=== PATIENT | female | born 1995 | race Caucasian/White ===

== ENCOUNTER 2017-04-27 19:06 | Observation (INO) ==
[2017-04-27 19:51] LABS: Bilirubin,Urine Negative (Negative); Blood,Urine Moderate (Negative); Clarity,Urine Cloudy (Clear); Color,Urine Yellow (Yellow); Glucose,Urine (UA) Normal (Normal); Ketones,Urine Negative (Negative); Leukocyte Esterase,Urine Large (Negative); Nitrite,Urine Negative (Negative); Protein,Urine 30 mg/dL (Neg-Trace); Specific Gravity,Urine < 1.005 (1.010-1.025); Urobilinogen,Urine Normal (Normal)
[2017-04-27 19:54] LABS: Bacteria,Urine Moderate per hpf (None-Few); Hyaline Casts,Urine None Seen per lpf (None-Few); Squamous Epithelial Cell,Urine Moderate per lpf (None-Few); WBC,Urine TNTC per hpf (0-3)
[2017-04-27 20:05] LABS: Amphetamine Screen,Urine Negative ng/mL (Cutoff=1000); Barbiturate Screen,Urine Negative ng/mL (Cutoff=200); Benzodiazepines Screen,Urine Negative ng/mL (Cutoff=200); Cannabinoid Screen,Urine Positive ng/mL (Cutoff = 50); Cocaine Screen,Urine Negative ng/mL (Cutoff= 300); Opiate Screen,Urine Negative ng/mL (Cutoff=300); Phencyclidine Screen,Urine Negative ng/mL (Cutoff=25)
--- NOTE | 2017-04-27 21:22 | OB/GYN Progress Note ---
Date of Encounter: 04/27/17 Time of Encounter: 21:16 - Assessment and Plan (1) Marijuana abuse Current Visit: Yes Status: Acute UDS positive. Pt admits to occasional use for nausea. Pt counseled on risks of use to fetus and states that she will not use for the remainder of her . (2) 31 weeks gestation of Current Visit: Yes Status: Acute (3) Pyelonephritis affecting in third trimester Current Visit: Yes Status: Acute Pt presents with right lower quadrant abd pain radiating to back, mild cva tenderness. UA positive for blood and leukocyte esterase, and TNTC WBCs, suspect early pyelonephritis. Pt afebrile and is not ill in appearance sent for culture. UDS positive for marijuana. VSS, abdomen soft, non-tender. NST reassuring. Will discharge with prescription for keflex 1000mg BIDx7 days. Pt states understanding of concerning signs and symptoms to watch for and return if needed. Pt states understanding and will be discharged in stable condition. Subjective - Subjective Principal diagnosis: abdominal pain Interval history: 21 y/o F at 31 1/7 weeks gestation who presents to L&D with RLQ abdominal pain that radiates to the back. She states that it began at 1000 and is constant. She notes normal movement. She has had some dysuria. Denies fevers, chills, hematuria, vaginal bleeding or fluid discharge, cp, sob, n/v. Antepartum ROS: movement normal, other (abdominal pain), no loss of fluid , no vaginal bleeding, no contractions Objective - Vital Signs Vital Signs: Intake and Output 04/27/17 04/27/17 04/27/17 07:59 15:59 23:59 Other: Weight 91.9 kg Patient Weight 04/27/17 23:59 Weight 91.9 kg - Exam FHR: auscultation normal, category 1 Auscultation: bilateral: normal Abdomen: Present: normal appearance, soft, gravid. Absent: tenderness (mild right CVA tenderness, no suprapubic tenderness) Cervical dilation: closed - Labs Labs: Abnormal lab results Urine Clarity Cloudy (Clear) A 04/27/17 19:40 Ur Specific [place] < 1.005 (1.010-1.025) L 04/27/17 19:40 Urine Protein 30 mg/dL (Neg-Trace) H 04/27/17 19:40 Urine Blood Moderate (Negative) H 04/27/17 19:40 Ur Leukocyte Esterase Large (Negative) H 04/27/17 19:40 Urine Microscopic RBC 5-15 per hpf (0-3) H 04/27/17 19:40 Urine Microscopic WBC TNTC per hpf (0-3) H 04/27/17 19:40 Ur Squamous Epith Cells Moderate per lpf (None-Few) H 04/27/17 19:40 Urine Bacteria Moderate per hpf (None-Few) H 04/27/17 19:40 Ur Culture Indicated? YES (NO) A 04/27/17 19:40 U Marijuana (THC) Screen Positive ng/mL (Cutoff = 50) H 04/27/17 19:40 - Allied health notes Allied health notes reviewed: nursing
== END 2017-04-27 21:42 | disposition home or self-care (01) ==
LOC: 1NENULAB
PROVIDERS: ADMIT Obstetrics & Gynecology; ATTEND Obstetrics & Gynecology

== ENCOUNTER 2017-06-26 05:55 | Inpatient (IN) ==
[2017-06-26] MEDS ORDERED: Naloxone 0.4 MG/ML INJ IVP PRN ×2 (06:01→17:15)
[2017-06-26] MEDS ORDERED: Metoclopramide 10 MG/2 ML VIAL IVP PRN ×2 (06:01→17:15)
[2017-06-26] MEDS ORDERED: Ondansetron 4 MG/2 ML VIAL IVP PRN ×2 (06:01→17:15)
[2017-06-26] MEDS ORDERED: miSOPROStol 25 MCG TABLET PO PRN (06:01)
[2017-06-26] MEDS ORDERED: *HR* Nalbuphine 10 MG/ML AMPUL IVP PRN (06:01)
[2017-06-26] MEDS ORDERED: Famotidine 20 MG/2 ML VIAL IVP PRN (06:01)
[2017-06-26] MEDS ORDERED: Ringers Solution, Lactated 1,000 ML IVC SCH ×2 (06:15→17:15)
[2017-06-26 07:01] LABS: Basophils % 0.3 %; Eosinophils # 0.1 K/mcL (0.0-0.6); Eosinophils % 0.6 %; Hematocrit 29.6 % (35.3-44.9); Hemoglobin 8.8 g/dL (11.5-15.4); Immature Granulocytes % 1.8 % (0-4); Lymphocytes # 2.5 K/mcL (0.6-4.6); Lymphocytes % 21.4 %; Mean Corpuscular HGB Conc 29.7 g/dL (31.6-35.5); Mean Corpuscular Hemoglobin 21.7 pg (28.0-33.3); Mean Corpuscular Volume 73.1 fL (83.0-100.0); Mean Platelet Volume 10.2 fL (9.4-12.4); Monocytes # 0.7 K/mcL (0.0-1.3); Monocytes % 5.6 %; Neutrophils # 8.3 K/mcL (1.6-8.9); Nucleated Red Blood Cells 0.2 /100 WBC (0); Platelet Count 203 K/mcL (140-400); Red Blood Count 4.05 M/mcL (3.82-4.97); Red Cell Distribution Width 17.8 % (11.5-14.5); Segmented Neutrophils % 70.3 %
--- NOTE | 2017-06-26 07:53 | OB/GYN History & Physical ---
Date of Encounter: 06/26/17 Time of Encounter: 07:50 Assessment and Plan (1) and not yet delivered in third trimester Current visit: Yes Status: Acute (2) 39 weeks gestation of Current visit: Yes Status: Acute (3) Large for gestational age fetus affecting mother, antepartum, third trimester, single gestation Current visit: Yes Status: Acute (4) Encounter for elective induction of labor Current visit: Yes Status: Acute Patient will be induced with a Estevse catheter and Cytotec plan is to anticipate vaginal delivery History of Present Illness HPI: Ms. Phillips is a 21 year old female 2 para 1 at 39-2/7 weeks by last menstrual period equal to an 8-5/7 week ultrasound who presented for induction of labor secondary to term . Patient had an ultrasound 2 weeks ago baby measured 3844 g which is greater than the 96th percentile with an PARAMJIT of 2170 this. She does have a history of delivering an 8 lbs. 9 oz. baby before. Did inform her once we were into the 39 week range we would go ahead and try to get her delivered to keep this baby from getting any bigger. Patient denies any contractions good movement no vaginal bleeding or discharge. Patient is O+, rubella positive, Varicella positive, and GBS negative. Patient's hemoglobin on admission was 8.8 today. She has been on iron twice a day. Past Med Surg Social Fam HX - Past Medical History Source: patient, old records reviewed Medical history: no medical history Psychiatric history: depression - Past Surgical History Surgical History: no surgical history - Social History Smoking Status: Never smoker Smokeless Tobacco Status: No Alcohol use: none Drug use: none Occupational status: employed Current living situation: Home - Independent Activity Level: Independent ambulation Recent Out of Country Travel Within the Last 8 Weeks: No Exposure or Possible Exposure to Illness During Travel: No - Family History Maternal Grandmother Living Status: Cause of : cancer Obstetrical History - Pregnancies : 2 Para: 1 Term: 1 Livin Medications and Allergies Vit/Iron Fumarate/FA [ Tablet] 1 each PO DAILY 04/27/17 [ History] Ferrous Sulfate 1 tab PO BID 06/26/17 [History] 3 Allergy/AdvReac Type Severity Reaction Status Date / Time No Known Allergies Allergy Verified 06/26/17 06:17 Review of System OB All systems PM: reviewed and no additional remarkable complaints except as stated Exam - Constitutional Constitutional: well developed, well nourished, no acute distress - HEENT HEENT: EOMI, PERRL - Neck Neck exam: full ROM - Lungs Respiratory exam: CTAB - Cardiovascular Cardiovascular exam: RRR - Abdomen Abdomen: Present: bowel sounds normal, gravid - Extremities Extremities exam: full ROM - Cervix Dilation: 1 Effacement: 80 Station: -3 (Esteves catheter inserted with 30 mL balloon inflated. 50 g Cytotec given by mouth) Results Result Diagrams: 06/26/17 06:38 Abnormal lab results WBC 11.8 K/mcL (4.3-11.1) H 06/26/17 06:38 Hgb 8.8 g/dL (11.5-15.4) L 06/26/17 06:38 Hct 29.6 % (35.3-44.9) L 06/26/17 06:38 MCV 73.1 fL (83.0-100.0) L 06/26/17 06:38 MCH 21.7 pg (28.0-33.3) L 06/26/17 06:38 MCHC 29.7 g/dL (31.6-35.5) L 06/26/17 06:38 RDW 17.8 % (11.5-14.5) H 06/26/17 06:38 Nucleated RBCs/100 WBC 0.2 /100 WBC (0) H 06/26/17 06:38 All other labs normal. - VTE Reasons for not Prescribing Prophylaxis: Treatment not Indicated - Low risk for VTE
[2017-06-26 08:43] LABS: Amphetamine Screen,Urine Negative ng/mL (Cutoff=1000); Barbiturate Screen,Urine Negative ng/mL (Cutoff=200); Benzodiazepines Screen,Urine Negative ng/mL (Cutoff=200); Cannabinoid Screen,Urine Negative ng/mL (Cutoff = 50); Cocaine Screen,Urine Negative ng/mL (Cutoff= 300); Opiate Screen,Urine Negative ng/mL (Cutoff=300); Phencyclidine Screen,Urine Negative ng/mL (Cutoff=25)
--- NOTE | 2017-06-26 10:59 | Anesthesia Evaluation PreOp ---
Date of Encounter: 06/26/17 Time of Encounter: 10:48 - Past History Planned Operation: labor epidural Cardiac History: Denies any Significant Hx Pulmonary History: Denies Any Significant HX RETREAD MOLD OPERATOR History: Denies Any Significant HX Other Medical History: Denies Any Significant HX Anesthesia History: No Prior Anesthetic Complications, Past Anesthesia (ear tubes as child, no problems with GA. No FHAP. Previous epidural, states had difficulty placing, but was effective.) : Yes Alcohol Use: none Drug use: none Medications and Allergies Vit/Iron Fumarate/FA [ Tablet] 1 each PO DAILY 04/27/17 [ History] Ferrous Sulfate 1 tab PO BID 06/26/17 [History] 3 Allergy/AdvReac Type Severity Reaction Status Date / Time No Known Allergies Allergy Verified 06/26/17 06:17 - Meds/Allergy Pre-op Review Medications Reviewed: Yes Allergies Reviewed: Yes Beta Blockers on Current Med List: No Anesthesia Results - Labs 06/26/17 06:38 Anesthesia Exam VSS and FHTs stable. Height: 5'7" Weight: 97kg NPO (# of Hours): 5 Pain Scale: 6 Pain Scale Used: Numeric (1 - 10) - HEENT Pupil (Motor): Pupils equal, EOMI Mallampati: II Teeth: Normal Oral Opening: Greater than 3 - RETREAD MOLD OPERATOR LOC: Oriented RETREAD MOLD OPERATOR Motor: Normal RUE, Normal LUE, Normal RLE, Normal LLE, Normal Face RETREAD MOLD OPERATOR Sensory: Normal: RUE, LUE, RLE, LLE, Face - Cardiac Rhythm: Regular - Pulmonary Breath Sounds: bilateral Clear Respiratory Effort: Symmetrical Anesthesia Assess/Plan ASA Score: 2 Modified Jose Rafael Scale for Level of Consciousness: Cooperative, oriented, and tranquil Anesthetic Plan: Regional
[2017-06-26] MEDS ORDERED: *HR* FentaNYL (PF) 100 MCG/2 ML VIAL EP ONE (11:00)
[2017-06-26] MEDS ORDERED: Bupivacaine-MPF 0.25% 10 ML VIAL EP ONE (11:00)
[2017-06-26] MEDS ORDERED: Epidural Premix (fent/bupiv) 110 ML EP SCH (11:00)
[2017-06-26] MEDS ORDERED: Epidural Premix (fent/bupiv) 110 ML EP ONE (11:42)
[2017-06-26] MEDS ORDERED: Morphine Sulfate/PF 5mg/10mL Vial ONE (14:11)
[2017-06-26] MEDS ORDERED: *HR* Oxytocin 10 UNIT/ML VIAL IM ONE ×2 (14:15→14:38)
[2017-06-26] MEDS ORDERED: *HR* Succinylcholine 200 MG/10 ML VIAL IVP ONE (14:15)
[2017-06-26] MEDS ORDERED: Ondansetron 4 MG/2 ML VIAL ONE (14:15)
[2017-06-26] MEDS ORDERED: *HR* Propofol 200 MG/20 ML VIAL IVP ONE (14:15)
[2017-06-26] MEDS ORDERED: Dexamethasone 4 MG/ML VIAL ONE (14:15)
[2017-06-26] MEDS ORDERED: *HR* Rocuronium Bromide 50 MG/5 ML VIAL ONE (14:19)
[2017-06-26] MEDS ORDERED: Ondansetron 4 MG/2 ML VIAL IVP ONE (14:34)
[2017-06-26] MEDS ORDERED: Acetaminophen IV 1,000 MG/100 ML INFUS..BTL IVPB ONE (14:34)
[2017-06-26] MEDS ORDERED: *HR* Promethazine 25 MG/ML VIAL IVP PRN (14:34)
[2017-06-26] MEDS ORDERED: MORPHINE SUL Oral CONC 10 MG/0.5 ML ORAL.SYG SL PRN (14:34)
[2017-06-26] MEDS ORDERED: *HR* HYDROmorphone (PF) 1 MG/ML SYRINGE IVP PRN (14:34)
[2017-06-26] MEDS ORDERED: Ringers Solution, Lactated 2,000 ML ONE (14:38)
--- NOTE | 2017-06-26 15:03 | OB/GYN Procedure Note ---
Section - Date of procedure: 06/26/17 Preop diagnosis: other ( at 39-2/7 weeks, cord prolapse) Post-op diagnosis: same (Same) Procedure: primary low transverse (emergent) Surgeon: Dawit Menchaca Blood Loss: 1,000 Was there an medical assistant cardiology present: Yes Sports Media: Rand Urbina ([email or web address]) Anesthesiologist: Blair Contreras Machine Ceramic Coater: Naa Yung Anesthesia Type: General section complications: none Disposition: L&D Recovery Room Specimens: Cord gasses - (s) Infant A Infant Delivery Date: 06/26/17 Delivery Time: 14:09 Presentation: vertex Position: CATRACHITO Route of delivery: other ( section) Gender: Male Viability: Viable Pounds: 9 Ounces: 0 Gram Weight: 4.08 kg at 1 minute: 8 at 5 minutes: 9 Shoulder Dystocia: not encountered Specimens collected: cord blood, venous cord gases, arterial cord gases Placenta: complete extraction Cord: 3 umbilical vessels - Narrative Narrative: Patient is a 21-year-old 2 para 1 at 39-2/7 weeks who had presented for induction of labor secondary to and large for gestational age infant. Patient did get a Esteves catheter which fell out approximately 2 hours after placement patient was given Cytotec patient was having contractions every 2 minutes and was 6 cm we went ahead and artificially ruptured her and we encountered large amounts of fluid. It was at this point it was noted that we could palpate a cord along side the baby's head. I attempted to reduce the cord for the cannot get it past the head and heart tones started to drop. Because return to drop and I could not reduce the cord an emergency was called for cord prolapse. Procedure: Patient was taken the operating room where she was placed in the dorsal supine position prepped with Betadine then draped was applied. Timeout was then obtained and general anesthesia was administered. Once the patient was asleep cancel incision was made with a scalpel carried down through the underlying tissue to the fascia was identified. The fascia was in midline rectus muscles were then identified in the midline also probable peritoneum was grasped with a hemostat tented up and entered sharply this is extended laterally blade was inserted the lower uterine segment was incised with a scalpel and then extended laterally with digital manipulation. The infant's head was then delivered and was noted baby had a nuchal cord 1 loose and reduced the infant was fully delivered cry the cord was clamped and cut and was handed off to the waiting pediatric team. Cord blood and cord gases were obtained percent was then delivered spontaneously 3 vessel cord. Uterus was then exteriorized cleaned of all clots and debris and then the lower uterine segment was closed using a 0 Vicryl in a running locking stitch by a 2 layer closure. Good hemostasis was noted the uterus was then returned to the abdomen and gutters were cleaned of all clots and debris then copiously irrigated. The fascia was then closed using a #1 stratafix a running stitch and the skin was closed using 4-0 Vicryl in a subcuticular manner. All needles laps and sponge counts were correct 3 patient did receive preoperative antibiotics she will be continued on Ancef 2 g every 8 hours for 24 hours Zithromax 500 mg IV piggyback 1 and Flagyl 500 mg every 8 hours 24 hours a TANIA dressing was applied and patient was taken to the recovery room in stable condition
--- NOTE | 2017-06-26 15:20 | Anesthesia Procedures ---
Date of Encounter: 06/26/17 Time of Encounter: 10:48 Procedures: Anesthesia - Epidural/Spinal Patient ID/Chart reviewed: Yes Patient examined: Yes OB Eval: Gestational age: 39 OB Eval: : 2 OB Eval: Hx Para: 1 OB Eval: Dilated at (cm): 4 OB Eval: Contractions: Non-stressed pattern Consent Obtained: Yes Supplemental Oxygen: None/Room Air Site Prep: Aseptic Technique, Sterile prep and drape, Povidone-Iodine 1% Patient position: upright Local Anesthetic: Lidocaine 1% Amount of Local Anesthetic used: 3 Touhy Needle Gauge: 18 Touhy Needle Depth (cm): 5 Catheter Depth at Skin (cm): 15 Test Dose (1.5% Lido + Epi): Volume given (mls): 3 Test Dose Result: Negative Loading Dose: 0.25% Marcaine (mls): 8 Loading Dose: Fentanyl (mcg): 100 Loading Dose Administered: Thru Catheter Infusion Med: 0.125% Bupivacaine w/ 2 mcg/ml Fentanyl Infusion Rate (mls/hr): [address]: Tegaderm, Tape Interspace Used: L3-L4 Loss of Resistance (MARA): Yes Blood: No CSF: No Paresthesia: No Vitals + FHT's: 3 Vital Signs Time 1143 1155 1200 1205 1210 BP 121/80 122/68 114/68 115/71 111/69 Pulse 112 98 96 92 94 FHTs 130 130 130 130 130
--- NOTE | 2017-06-26 16:01 | Anesthesia Evaluation Post Op ---
Date of Encounter: 06/26/17 Time of Encounter: 15:45 - Vital Signs Vital Signs: VSS. - Lungs Lungs: Clear Ascult./Percussion - Airway Airway: Non-obstructed - Cardiovascular Regular Rate - Mental Status Mental Status: Alert & Oriented, Answers Appropriately - Pain Pain Scale: 5 (down from 7) Pain Scale used: Numeric (1 - 10) - Nausea Vomiting Nausea Vomiting: Not Present - Hydration Hydration: NPO, Esteves catheter - Discharge PostOp Status: Transfer Patient to floor
[2017-06-26] MEDS ORDERED: Oxytocin 20 units/ LR 1000 mL 20 UNIT/1,000 ML BAG IVC ONE (16:26)
[2017-06-26] MEDS ORDERED: Sennosides 8.6 MG TABLET PO PRN (17:15)
[2017-06-26] MEDS ORDERED: Oxytocin 20 units/ LR 1000 mL 20 UNIT/1,000 ML BAG IVC SCH (17:15)
[2017-06-26] MEDS ORDERED: Simethicone 80 MG TAB.CHEW PO PRN (17:15)
[2017-06-26] MEDS ORDERED: CeFAZolin Syringe 2,000MG/20 ML SYR IVPB SCH (17:15)
[2017-06-26] MEDS ORDERED: *HR* OxyCODONE/APAP 10/325 TABLET PO PRN (17:15)
[2017-06-26] MEDS: CeFAZolin Pre 2,000 MG/100 ML 2,000 MG/100 ML BAG IVPB SCH (18:22)
[2017-06-26] MEDS: Azithromycin 500 MG in D5% in Water 250 ML IVPB SCH (19:02)
[2017-06-26] MEDS: MetroNIDAZOLE 500 MG/100 ML 500 MG/100 ML BAG IVPB SCH (20:25)
[2017-06-26] MEDS ORDERED: NON-FORMULARY MEDICATION 1 EACH EACH (Ferrous Sulfate 1 TAB) PO SCH (21:00)
[2017-06-27] MEDS: CeFAZolin Pre 2,000 MG/100 ML 2,000 MG/100 ML BAG IVPB SCH ×2 (00:10→08:02)
[2017-06-27] MEDS: Ibuprofen 600 MG TABLET PO PRN ×3 (00:21→20:15)
[2017-06-27] MEDS: MetroNIDAZOLE 500 MG/100 ML 500 MG/100 ML BAG IVPB SCH ×3 (00:59→16:53)
[2017-06-27] MEDS: *HR* OxyCODONE/APAP 5/325 TABLET PO PRN ×4 (03:59→21:13)
[2017-06-27 04:58] LABS: Basophils % 0.1 %; Eosinophils % 0.1 %; Hematocrit 21.2 % (35.3-44.9); Immature Granulocytes % 0.9 % (0-4); Lymphocytes # 2.7 K/mcL (0.6-4.6); Lymphocytes % 17.9 %; Mean Corpuscular HGB Conc 29.2 g/dL (31.6-35.5); Mean Corpuscular Hemoglobin 21.6 pg (28.0-33.3); Mean Corpuscular Volume 73.9 fL (83.0-100.0); Mean Platelet Volume 10.8 fL (9.4-12.4); Monocytes # 0.8 K/mcL (0.0-1.3); Monocytes % 5.7 %; Neutrophils # 11.2 K/mcL (1.6-8.9); Platelet Count 180 K/mcL (140-400); Red Blood Count 2.87 M/mcL (3.82-4.97); Red Cell Distribution Width 17.9 % (11.5-14.5); Segmented Neutrophils % 75.3 %
[2017-06-27 04:59] LABS: Hemoglobin 6.2 g/dL (11.5-15.4)
[2017-06-27] MEDS: Prenatal Vit/FA 1 EACH TABLET PO SCH (08:01)
--- NOTE | 2017-06-27 08:21 | OB/GYN Progress Note ---
Date of Encounter: 06/27/17 Time of Encounter: 08:19 - Assessment and Plan (1) Status post primary low transverse section Current Visit: Yes Status: Acute continue routine postop/ care (2) Anemia Current Visit: Yes Status: Acute Will transfuse 2 units PRBCs today and continue ferrous sulfate BID. Qualifiers: Anemia type: unspecified type Qualified Code(s): D64.9 - Anemia, unspecified Subjective - Subjective Principal diagnosis: Postop/ day 1 primary c/s Interval history: Patient is postop day 1 Primary c/s for cord prolapse. Patient is doing well. Lochia is light. Patient reports pain is well controlled. Patient reports: appetite normal, pain well controlled : doing well, bottle feeding Objective - Vital Signs Latest vital signs: Vital Signs Temp Pulse Resp BP Pulse Ox 06/27/17 07:48 98.5 F 86 16 111/71 100 06/27/17 04:00 98.0 F 76 16 112/72 98 06/27/17 00:25 98.2 F 74 16 119/80 97 06/26/17 20:15 97.8 F 85 14 122/76 98 06/26/17 19:15 97.9 F 80 14 120/75 98 06/26/17 18:15 97.6 F 66 16 119/81 98 06/26/17 17:45 98.9 F 65 16 118/78 06/26/17 17:15 98.2 F 83 16 117/81 97 Intake and Output 06/26/17 06/27/17 06/27/17 23:59 07:59 15:59 Intake Total 200 / 200 1040 / 1040 Output Total 300 / 300 1050 / 1050 Balance -100 / -100 -10 / -10 Intake: IV Fluids 200 / 200 200 / 200 Ancef Premix 2,000 MG/100 ML 2, 100 / 100 100 / 100 000 mg In 100 ml @ 200 mls/hr IVPB Q8HR RADHA Rx#:[id number] Flagyl Premix 500 MG/100 ML 500 100 / 100 100 / 100 mg In 100 ml @ 100 mls/hr IVPB Q8HR RADHA Rx#:[id number] Oral 840 / 840 Output: Urine 700 / 700 Catheter 300 / 300 350 / 350 Other: Meal Gold fish crackers , Jello Percent of Meal Consumed 100% Weight 93.259 kg Patient Weight 06/27/17 23:59 Weight 93.259 kg - Exam Lungs: bilateral: normal Chest: Normal S1, Normal S2 Extremities: Present: normal Abdomen: Present: normal appearance, soft Incision: Present: normal, dressed (Samuel dressing. @ spots drainging on lower dressing that have been marked. ) Uterus: Present: normal, firm - Labs Labs: Laboratory Results - last 24 hr 06/26/17 06/26/17 06/27/17 06:38 08:05 04:08 WBC 14.8 H RBC 2.87 L Hgb 6.2 L D Hct 21.2 L MCV 73.9 L MCH 21.6 L MCHC 29.2 L RDW 17.9 H Plt Count 180 MPV 10.8 Immature Gran % 0.9 Seg Neutrophils % 75.3 Lymphocytes % 17.9 Monocytes % 5.7 Eosinophils % 0.1 Basophils % 0.1 Neutrophils # 11.2 H Lymphocytes # 2.7 Monocytes # 0.8 Eosinophils # 0.0 Basophils # 0.0 Urine Opiates Screen Negative Ur Barbiturates Screen Negative Ur Phencyclidine Scrn Negative Ur Amphetamines Screen Negative U Benzodiazepines Scrn Negative Urine Cocaine Screen Negative U Marijuana (THC) Screen Negative Blood Type O POSITIVE
[2017-06-27] MEDS ORDERED: NON-FORMULARY MEDICATION 1 EACH EACH (Prenatal Vit/Iron Fumarate/Fa [Prenatal Tablet] 1 EA PO SCH (09:00)
[2017-06-27] MEDS ORDERED: 0.9 % Sodium Chloride 1,000 ML ONE (09:36)
[2017-06-27] MEDS: Azithromycin 500 MG in D5% in Water 250 ML IVPB SCH (18:48)
[2017-06-28] MEDS: *HR* OxyCODONE/APAP 5/325 TABLET PO PRN (02:47)
[2017-06-28 04:35] LABS: Basophils % 0.2 %; Eosinophils # 0.1 K/mcL (0.0-0.6); Eosinophils % 0.8 %; Hematocrit 24.1 % (35.3-44.9); Hemoglobin 7.7 g/dL (11.5-15.4); Immature Granulocytes % 2.2 % (0-4); Lymphocytes % 23.6 %; Mean Corpuscular Hemoglobin 24.8 pg (28.0-33.3); Mean Corpuscular Volume 77.5 fL (83.0-100.0); Mean Platelet Volume 10.2 fL (9.4-12.4); Monocytes # 0.7 K/mcL (0.0-1.3); Monocytes % 5.1 %; Neutrophils # 8.8 K/mcL (1.6-8.9); Nucleated Red Blood Cells 0.4 /100 WBC (0); Platelet Count 171 K/mcL (140-400); Red Blood Count 3.11 M/mcL (3.82-4.97); Red Cell Distribution Width 19.2 % (11.5-14.5); Segmented Neutrophils % 68.1 %
[2017-06-28 07:53] VITALS: BP 108/74
--- NOTE | 2017-06-28 08:39 | Discharge Summary ---
Date of Encounter: 06/28/17 Time of Encounter: 08:36 - Discharge Diagnosis (1) Status post primary low transverse section Priority: Primary Status: Acute Comments: Pt meeting milestones. Tolerating regular diet without nausea. She is not yet passing flatus. Precautions given. (2) Anemia due to acute blood loss Priority: Secondary Status: Acute Comments: Pt denies s/sx anemia. She is s/p 2 units PRBC's with rise in hgb 6.2 to 7.7. Discharge home on iron. - Discharge Medications Prescriptions: OxyCODONE/APAP 5/325 [Percocet 5/325 MG] 1 each PO Q4HR PRN 5 Days #30 tablet PRN Reason: Moderate pain 4-6 Ibuprofen [Motrin] 600 mg PO Q6HR PRN #60 tablet PRN Reason: Cramping Docusate [Colace] 100 mg PO BID #60 capsule Ferrous Sulfate 325 mg PO DAILY #30 tablet Home Medications: Azithromycin [Zithromax Tri-Manuel] 500 mg PO DAILY #5 tablet 06/28/17 [Rx] Docusate [Colace] 100 mg PO BID #60 capsule 06/28/17 [Rx] Ferrous Sulfate 325 mg PO DAILY #30 tablet 06/28/17 [Rx] Ibuprofen [Motrin] 600 mg PO Q6HR PRN #60 tablet 06/28/17 [Rx] OxyCODONE/APAP 5/325 [Percocet 5/325 MG] 1 each PO Q4HR PRN 5 Days #30 tablet [Rx] Vit/FA 1 each PO DAILY tablet 06/28/17 [Rx] Simethicone [Gas-X] 80 mg PO TID PRN tab.chew 06/28/17 [Rx] Allergies/Adverse Reactions: 3 Allergy/AdvReac Type Severity Reaction Status Date / Time No Known Allergies Allergy Verified 06/26/17 06:17 Data Procedures and tests throughout hospitalization: Laboratory Tests 06/26/17 06/26/17 06/26/17 06:38 06:38 08:05 WBC 11.8 H RBC 4.05 Hgb 8.8 L Hct 29.6 L MCV 73.1 L MCH 21.7 L MCHC 29.7 L RDW 17.8 H Plt Count 203 MPV 10.2 Immature Gran % 1.8 Seg Neutrophils % 70.3 Lymphocytes % 21.4 Monocytes % 5.6 Eosinophils % 0.6 Basophils % 0.3 Neutrophils # 8.3 Lymphocytes # 2.5 Monocytes # 0.7 Eosinophils # 0.1 Basophils # 0.0 Nucleated RBCs/100 WBC 0.2 H Urine Opiates Screen Negative Ur Barbiturates Screen Negative Ur Phencyclidine Scrn Negative Ur Amphetamines Screen Negative U Benzodiazepines Scrn Negative Urine Cocaine Screen Negative U Marijuana (THC) Screen Negative Blood Type O POSITIVE Antibody Screen NEGATIVE Crossmatch See Detail 06/27/17 06/28/17 04:08 03:59 WBC 14.8 H 12.8 H RBC 2.87 L 3.11 L Hgb 6.2 L D 7.7 L D Hct 21.2 L 24.1 L MCV 73.9 L 77.5 L MCH 21.6 L 24.8 L MCHC 29.2 L 32.0 RDW 17.9 H 19.2 H Plt Count 180 171 MPV 10.8 10.2 Immature Gran % 0.9 2.2 Seg Neutrophils % 75.3 68.1 Lymphocytes % 17.9 23.6 Monocytes % 5.7 5.1 Eosinophils % 0.1 0.8 Basophils % 0.1 0.2 Neutrophils # 11.2 H 8.8 Lymphocytes # 2.7 3.0 Monocytes # 0.8 0.7 Eosinophils # 0.0 0.1 Basophils # 0.0 0.0 Nucleated RBCs/100 WBC 0.4 H Urine Opiates Screen Ur Barbiturates Screen Ur Phencyclidine Scrn Ur Amphetamines Screen U Benzodiazepines Scrn Urine Cocaine Screen U Marijuana (THC) Screen Blood Type Antibody Screen Crossmatch Labs on day of discharge: Labs from last 24 hours 06/28/17 06/26/17 03:59 06:38 WBC 12.8 H RBC 3.11 L Hgb 7.7 L D Hct 24.1 L MCV 77.5 L MCH 24.8 L MCHC 32.0 RDW 19.2 H Plt Count 171 MPV 10.2 Immature Gran % 2.2 Seg Neutrophils % 68.1 Lymphocytes % 23.6 Monocytes % 5.1 Eosinophils % 0.8 Basophils % 0.2 Neutrophils # 8.8 Lymphocytes # 3.0 Monocytes # 0.7 Eosinophils # 0.1 Basophils # 0.0 Nucleated RBCs/100 WBC 0.4 H Blood Type O POSITIVE Antibody Screen NEGATIVE Crossmatch See Detail - Impressions ITS Impressions KUB X-Ray 06/26/17 14:14 IMPRESSION: No acute abdominal finding. No obvious radiopaque foreign body. D/ / 06/26/2017 14:56:19 Oanh Putnam MD / bcarter Interpreting Provider: Oanh Putnam MD Date of admission: 06/26/17 05:55 Primary care physician: Ashleigh Mon CNP Discharging clinician: Jaquelin Dejesus Anticipated date of discharge: 06/28/17 - Patient Status Disposition: Home, Self-Care Condition: Good Functional capacity at discharge: independent ambulation Overall status at discharge: patient is progressing back to baseline - Discharge Instructions Instructions: Section (DC) Follow Up With: Dawit Araiza DO [Partnered Physician] - 07/11/17 4:15 pm Ashleigh Mon CNP [Primary Care Provider] - - Diet and Activity Activity: increase activity as tolerated Diet: regular diet Hospital Course Reason for admission: induction of labor Delivery: section (for cord prolapse) Episiotomy: none Laceration: 4th degree Other procedures: none complications: transfusion Discharge diagnosis: IUP at term delivered baby: male Hospital course: - Date of procedure: 06/26/17 Preop diagnosis: other ( at 39-2/7 weeks, cord prolapse) Post-op diagnosis: same (Same) Procedure: primary low transverse (emergent) Surgeon: Dawit Araiza Quantitated Blood Loss: 1,000 Was there an higher level teaching assistant present: Yes Clinical Education Coordinator: Rand Urbina ([email or web address]) Anesthesiologist: Blair Contreras Ticker Wirer: Naa Yung Anesthesia Type: General section complications: none Disposition: L&D Recovery Room Specimens: Cord gasses - Infant (s) A Delivery Date: 06/26/17 Infant Delivery Time: 14:09 Presentation: vertex Position: CATRACHITO Route of delivery: other ( section) Gender: Male Viability: Viable Pounds: 9 Ounces: 0 Gram Weight: 4.08 kg at 1 minute: 8 at 5 minutes: 9 Shoulder Dystocia: not encountered Specimens collected: cord blood, venous cord gases, arterial cord gases Placenta: complete extraction Cord: 3 umbilical vessels Time Attestation: Total time spent providing and/or coordinating discharge services: Time Spent: Less than 30 minutes - VTE Reasons for not Prescribing Prophylaxis: Treatment not Indicated - Low risk for VTE Documentation of Mechanical Device: Intermittent pneumatic compression device Exam - Constitutional Vitals: Temp Pulse Resp BP Pulse Ox 98.8 F 88 16 108/74 99 06/28/17 07:52 06/28/17 07:52 06/28/17 07:52 06/28/17 07:52 06/28/17 07:52 General appearance IM: A&O X 3, pleasant, no acute distress - Respiratory Respiratory exam: Present: CTAB - Cardiovascular Cardiovascular exam IM: Present: RRR, +S1, +S2 - GI/Abdominal GI/Abdominal exam IM: normal bowel sounds, soft, no peritoneal signs Incision: dressed (dressing with small amount old drainage, otherwise intact) - Uterine Tone: Firm Uterus Position: 1 Finger Below Umbilicus - Extremities Exam Extremities exam IM: Present: pedal edema (1+ bilaterally, no erythema or warmth ) - Neurological Exam Neurological exam: normal gait, oriented X3 - Psychiatric Additional comments: reports good mood
[2017-06-28] MEDS: Prenatal Vit/FA 1 EACH TABLET PO SCH (10:57)
== END 2017-06-28 11:40 | disposition home or self-care (01) | DRG 540 ==
LOC: 1NENULAB 05:55 → 1NENUOBS 16:04
PROVIDERS: ADMIT Obstetrics & Gynecology; ATTEND Obstetrics & Gynecology

== ENCOUNTER 2020-05-11 02:33 | Inpatient (IN) ==
[2020-05-11 02:24] LABS: Basophils % 0.3 %; Eosinophils % 0.3 %; Hematocrit 38.5 % (35.3-44.9); Immature Granulocytes % 1.4 % (0-4); Lymphocytes # 2.7 K/mcL (0.6-4.6); Lymphocytes % 18.1 %; Mean Corpuscular HGB Conc 28.6 g/dL (31.6-35.5); Mean Corpuscular Hemoglobin 24.1 pg (28.0-33.3); Mean Corpuscular Volume 84.2 fL (83.0-100.0); Mean Platelet Volume 10.2 fL (9.4-12.4); Monocytes # 0.6 K/mcL (0.0-1.3); Monocytes % 4.2 %; Neutrophils # 11.1 K/mcL (1.6-8.9); Platelet Count 330 K/mcL (140-400); Red Blood Count 4.57 M/mcL (3.82-4.97); Segmented Neutrophils % 75.7 %; White Blood Count 14.7 K/mcL (4.3-11.1)
[~2020-05-11 02:33] MED LIST: *HR* Nalbuphine 10 MG/ML AMPUL IV PRN; *HR* Nalbuphine 10 MG/ML AMPUL ONE; Famotidine 20 MG/2 ML VIAL IVP PRN; Lidocaine 1% 20 ML MDV INFILT PRN; Metoclopramide 10 MG/2 ML VIAL IVP PRN; Naloxone 0.4 MG/ML INJ IVP PRN; Ringers Solution, Lactated 1,000 ML IVC SCH
[2020-05-11 02:47] LABS: Anisocytosis 2+ (Not Present); Hypochromasia Present (Not Present); Platelet Estimate Normal (Normal); Poikilocytosis 1+ (Not Present); Polychromasia 1+ (Not Present)
[2020-05-11] MEDS ORDERED: Oxytocin 20 units/ LR 1000 mL 20 UNIT/1,000 ML BAG IVC ONE (04:23)
[2020-05-11] MEDS ORDERED: Acetaminophen 325 MG TABLET PO PRN (05:00)
[2020-05-11] MEDS ORDERED: Measles/Mumps/Rubella Vacc 0.5 ML VIAL SQ PRN (05:00)
[2020-05-11] MEDS ORDERED: Rho Immune Globulin 1,500 UNIT SYRINGE IM PRN (05:00)
[2020-05-11] MEDS ORDERED: Oxytocin 20 units/ LR 1000 mL 20 UNIT/1,000 ML BAG IVC SCH (05:00)
[2020-05-11] MEDS: Prenatal Vit/FA 1 EACH TABLET PO SCH (09:26)
[2020-05-11] MEDS: Ibuprofen 600 MG TABLET PO PRN ×2 (14:23→23:17)
[2020-05-11] MEDS ORDERED: Benzocaine/Menthol 56 GM AEROSOL SPRAY TP ONE (23:18)
[2020-05-12 04:43] LABS: Eosinophils % 1.6 %
[2020-05-12 04:45] LABS: Basophils % 0.3 %; Eosinophils # 0.2 K/mcL (0.0-0.6); Hemoglobin 8.6 g/dL (11.5-15.4); Immature Granulocytes % 1.8 % (0-4); Lymphocytes % 30.4 %; Mean Corpuscular HGB Conc 28.7 g/dL (31.6-35.5); Mean Corpuscular Hemoglobin 24.4 pg (28.0-33.3); Mean Corpuscular Volume 85.2 fL (83.0-100.0); Monocytes # 0.6 K/mcL (0.0-1.3); Monocytes % 4.6 %; Platelet Count 257 K/mcL (140-400); Red Blood Count 3.52 M/mcL (3.82-4.97); Segmented Neutrophils % 61.3 %
[2020-05-12 04:53] LABS: Lymphocytes # 3.7 K/mcL (0.6-4.6); Neutrophils # 7.4 K/mcL (1.6-8.9)
[2020-05-12 05:35] LABS: Anisocytosis 2+ (Not Present); Hypochromasia Present (Not Present)
[2020-05-12 05:36] LABS: Platelet Estimate Normal (Normal); Polychromasia 1+ (Not Present)
[2020-05-12 07:46] VITALS: BP 114/66
[2020-05-12] MEDS: Prenatal Vit/FA 1 EACH TABLET PO SCH (08:25)
[2020-05-12] MEDS: Ibuprofen 600 MG TABLET PO PRN (08:25)
== END 2020-05-12 09:15 | disposition home or self-care (01) | DRG 560 ==
LOC: 1NENULAB → 1NENUOBS 05:27
PROVIDERS: ADMIT Student in an Organized Health Care Education/Training Program; ATTEND Student in an Organized Health Care Education/Training Program

== ENCOUNTER 2021-10-22 16:38 | Observation (INO) ==
[2021-10-22] MEDS ORDERED: Bupivacaine/EPI 1:200k 0.25% 50 ML VIAL ONE (16:50)
[2021-10-22] MEDS: Ringers Solution, Lactated 1,000 ML IVC SCH (18:07)
[2021-10-22 18:15] LABS: Basophils # 0.1 K/mcL (0.0-0.2); Basophils % 0.8 %; Eosinophils # 0.4 K/mcL (0.0-0.6); Eosinophils % 4.5 %; Hematocrit 29.6 % (35.3-44.9); Hemoglobin 8.1 g/dL (11.5-15.4); Immature Granulocytes % 0.3 % (0-4); Lymphocytes # 2.4 K/mcL (0.6-4.6); Lymphocytes % 27.2 %; Mean Corpuscular HGB Conc 27.4 g/dL (31.6-35.5); Mean Corpuscular Hemoglobin 19.2 pg (28.0-33.3); Mean Corpuscular Volume 70.1 fL (83.0-100.0); Mean Platelet Volume 9.6 fL (9.4-12.4); Monocytes # 0.4 K/mcL (0.0-1.3); Monocytes % 4.8 %; Platelet Count 382 K/mcL (140-400); Red Blood Count 4.22 M/mcL (3.82-4.97); Red Cell Distribution Width 18.6 % (11.5-14.5); Segmented Neutrophils % 62.4 %; White Blood Count 8.9 K/mcL (4.3-11.1)
[2021-10-22 18:17] LABS: Neutrophils # 5.6 K/mcL (1.6-8.9)
[2021-10-22 18:35] LABS: Anisocytosis 1+ (Not Present); Hypochromasia Present (Not Present)
[2021-10-22 18:36] LABS: Platelet Estimate Normal (Normal)
[2021-10-22] MEDS ORDERED: Methotrexate PFS 25 MG/ML VIAL IM ONE (19:23)
[2021-10-22] MEDS ORDERED: [UNRECOGNIZED DRUG - OTHER] IM ONE (21:00)
[2021-10-22] MEDS ORDERED: LOK IM ONE (21:00)
[2021-10-22] MEDS ORDERED: Acetaminophen 325 MG TABLET PO PRN (21:10)
[2021-10-22 21:23] LABS: Alanine Aminotransferase 8 Units/L (7-52); Albumin 4.1 g/dL (3.5-5.7); Albumin/Globulin Ratio 1.3 (1.1-2.2); Alkaline Phosphatase 57 Units/L (34-104); Aspartate Amino Transferase 14 Units/L (13-39); BUN/Creatinine Ratio 20 (6-26); Bilirubin,Total 0.3 mg/dL (0.3-1.0); Blood Urea Nitrogen 13 mg/dL (6-20); Calcium 9.2 mg/dL (8.6-10.3); Carbon Dioxide 23 mEq/L (23-29); Chloride 107 mEq/L (98-107); Globulin 3.1 g/dL (2.4-3.5); Glucose 86 mg/dL (70-105); Osmolality,Calculated 285 (280-300); Potassium 3.7 mEq/L (3.5-5.1); Sodium 138 mEq/L (136-145); Total Protein 7.2 g/dL (6.4-8.9)
[2021-10-23] MEDS: Acetaminophen 325 MG TABLET PO PRN ×2 (01:59→09:00)
[2021-10-23] MEDS: Ringers Solution, Lactated 1,000 ML IVC SCH (01:59)
[2021-10-23 04:45] VITALS: O2SAT 99
[2021-10-23 04:52] LABS: Basophils % 0.5 %; Eosinophils # 0.4 K/mcL (0.0-0.6); Eosinophils % 6.8 %; Hematocrit 24.8 % (35.3-44.9); Hemoglobin 7.2 g/dL (11.5-15.4); Immature Granulocytes % 0.2 % (0-4); Lymphocytes # 2.5 K/mcL (0.6-4.6); Lymphocytes % 39.5 %; Mean Corpuscular Hemoglobin 20.2 pg (28.0-33.3); Mean Corpuscular Volume 69.7 fL (83.0-100.0); Mean Platelet Volume 9.7 fL (9.4-12.4); Monocytes # 0.4 K/mcL (0.0-1.3); Monocytes % 6.7 %; Neutrophils # 2.9 K/mcL (1.6-8.9); Platelet Count 274 K/mcL (140-400); Red Blood Count 3.56 M/mcL (3.82-4.97); Red Cell Distribution Width 18.6 % (11.5-14.5); Segmented Neutrophils % 46.3 %; White Blood Count 6.3 K/mcL (4.3-11.1)
[2021-10-23 05:06] LABS: Anisocytosis 1+ (Not Present); Hypochromasia Present (Not Present); Microcytosis Present (Not Present); Platelet Estimate Normal (Normal)
[2021-10-23 07:15] VITALS: BP 102/64; PULSE 81; TEMP 98.5
[2021-10-23 11:59] LABS: Hematocrit 26.2 % (35.3-44.9); Hemoglobin 7.4 g/dL (11.5-15.4)
== END 2021-10-23 12:44 | disposition home or self-care (01) ==
LOC: 1NENUOBS 16:38 → INTOOBSV 16:38
PROVIDERS: ADMIT Obstetrics & Gynecology; ATTEND Obstetrics & Gynecology